=== PATIENT | male | born 1985 | race Caucasian/White ===

== ENCOUNTER 2024-07-23 18:56 | Emergency (ER) | payer OTHER, SELFPAY ==
[2024-07-23 19:04] VITALS: BP 130/92
[2024-07-23 19:35] LABS: % Basophils 0.4 % (0-2); % Eosinophils 0.5 % (0-6); % Immature Granulocytes 0.3 % (0-0.5); % Lymphocytes 19.9 % (20.5-51.1); % Neutrophils 68.9 % (42.2-75.2); Absolute Lymphocytes 1.5 10^3/uL (1.2-3.4); Absolute Monocytes 0.8 10^3/uL (0.1-0.6); Absolute Neutrophils 5.3 10^3/uL (1.4-6.5); Hematocrit 43.7 % (39.0-52.0); Hemoglobin 15.1 g/dL (13.0-18.0); Mean Corp Hgb Conc. 34.6 g/dL (33.0-37.0); Mean Corpuscular Hgb 29.4 pg (27.0-31.0); Mean Corpuscular Volume 85.2 fL (80.0-94.0); Mean Platelet Volume 9.4 fL (7.4-10.4); Nucleated Red Blood Cells % 0 % (-); Platelet Count 193 10^3/uL (130-400); Red Blood Cell Count 5.13 10^6/uL (4.70-6.10); White Blood Cell Count 7.7 10^3/uL (4.8-10.8)
[2024-07-23 19:49] LABS: ALT (SGPT) 29 U/L (0-50); AST (SGOT) 38 U/L (17-59); Albumin 4.4 g/dl (3.5-5.0); Alkaline Phosphatase 57 U/L (38-126); Blood Urea Nitrogen 10 mg/dl (9-20); Calcium 8.5 mg/dl (8.4-10.2); Carbon Dioxide 30 mmol/L (22-30); Chloride 96 mmol/L (98-107); Glucose 101 mg/dl (70-99); Lipase 112 U/L (23-300); Potassium 4.4 mmol/L (3.5-5.1); Sodium 135 mmol/L (135-145); Total Bilirubin 0.6 mg/dl (0.2-1.3); eGFR > 60.00
[2024-07-23 19:54] LABS: COVID-19 Antigen Negative (Negative)
--- NOTE | 2024-07-23 22:09 | ED.GENMED ---
History of Present Illness
<KRISTI Saez - Last Filed: 07/23/24 23:43>
General
Chief Complaint: Cold/Flu/URI Symptoms
Source: patient
Time Seen by Provider: 07/23/24 22:09
Nursing documentation reviewed up to this point in time: agreed with
History of Present Illness
History of Present Illness:
Patient is a 38-year-old male who presents to the ER with 1 week of fever chills cough nausea vomiting diarrhea. He went back to work yesterday because he started to feel better but then today continued with fever and also had left-sided abdominal
pain which was what brought him to the ER. Initially during the start of the illness he had diarrhea however he has not had diarrhea or constipation with this abdominal pain.
Review of Systems
<KRISTI Saez - Last Filed: 07/23/24 23:43>
Review of Systems
Allergies reviewed?: Yes
All Other Systems: ROS reviewed and negative except as documented in HPI and ROS
Constitutional: Reports fever, fatigue and chills
EENT: Reports no symptoms
Respiratory: Reports cough; Denies trouble breathing
Cardiac: Reports no symptoms
ABD/GI: Reports abdominal pain and other (pt had n/v/d which has since resolved); Denies nausea, vomiting or diarrhea
: Reports no symptoms
Musculoskeletal: Reports no symptoms
Skin: Reports no symptoms
Psychiatric: Reports no symptoms
Phy Exam
<KRISTI Saez - Last Filed: 07/23/24 23:43>
General Physical Exam
General Presentation: no apparent distress
General age: appears stated age
General Skin: warm and dry
General Habitus: normal
General Mental: alert
General Hydration: appears well hydrated
Cardiovascular Exam
Cardiovascular Exam: regular rate/rhythm, no murmur and normal peripheral pulses
Pulmonary Exam
Pulmonary Exam: lungs clear and no respiratory distress
Gastrointestinal Exam
Gastrointestinal Exam: soft and other (tender left lower and left mid abdomen)
Neurological Exam
Neurological Exam: alert and oriented x3
Musculoskeletal Exam
Musculoskeletal Exam: full ROM
Skin Exam
Skin Exam: normal color and warm/dry
Psychiatric Exam
Psychiatric Exam: normal mood/affect
Course
<KRISTI Saez - Last Filed: 07/23/24 23:43>
Orders/Labs/Results
Orders:
Orders
07/23/24 19:08
Electrocardiogram (*1) Urgent
Reason for Study: Abdominal Pain
EKG- Treatment ONCE
CR Chest - 2 Views Urgent
Comment:
Reason For Exam: cough
07/23/24 19:23
COVID-19 Antigen Urgent
Source: Nasal Swab
Complete Blood Count/With Diff Urgent
Comprehensive Metabolic Panel Urgent
Lipase Urgent
Influenza A+B Rapid Molecular Urgent
JUANA Source: Nasal Swab
Specimen Description:
07/23/24 22:25
CT Abd/Pel (IV only)-DH only Urgent
Comment:
Reason For Exam: left sided abd pain
IV Insert/Care/Rem.- Treatment PRN
0.9% Sodium Chloride 1000 ml [Nss] 1,000 ml IV BOLUS
07/23/24 22:26
Ketorolac [Toradol] 15 mg IV NOW STA
Abnormal Lab Results
07/23/24
19:23
Absolute Monos (auto) 0.8 H 10^3/uL
(0.1-0.6)
Lymphocytes % 19.9 L %
(20.5-51.1)
Monocytes % 10.0 H %
(1.7-9.3)
Chloride 96 L mmol/L
(98-107)
Glucose 101 H mg/dl
(70-99)
07/23/24 19:23
07/23/24 19:23
Vital Signs
Initial and Last Documented VS:
Initial Vital Signs
Temp Pulse Resp BP Pulse Ox
100.7 F H 91 16 130/92 98
07/23/24 19:04 07/23/24 19:04 07/23/24 19:04 07/23/24 19:04 07/23/24 19:04
Last Documented Vital Signs
Temp Pulse Resp BP Pulse Ox
100.7 F H 91 16 140/70 93
07/23/24 19:04 07/23/24 19:04 07/23/24 19:04 07/23/24 23:00 07/23/24 23:00
Glue Bone Crusher consulted with Physician
Glue Bone Crusher consulted with physician?: Yes
Name of Physician Consulted: Dontae
<Louis Dueñas, - Last Filed: 07/23/24 23:30>
Orders/Labs/Results
Orders:
Orders
07/23/24 19:08
Electrocardiogram (*1) Urgent
Reason for Study: Abdominal Pain
EKG- Treatment ONCE
CR Chest - 2 Views Urgent
Comment:
Reason For Exam: cough
07/23/24 19:23
COVID-19 Antigen Urgent
Source: Nasal Swab
Complete Blood Count/With Diff Urgent
Comprehensive Metabolic Panel Urgent
Lipase Urgent
Influenza A+B Rapid Molecular Urgent
JUANA Source: Nasal Swab
Specimen Description:
07/23/24 22:25
CT Abd/Pel (IV only)-DH only Urgent
Comment:
Reason For Exam: left sided abd pain
IV Insert/Care/Rem.- Treatment PRN
0.9% Sodium Chloride 1000 ml [Nss] 1,000 ml IV BOLUS
07/23/24 22:26
Ketorolac [Toradol] 15 mg IV NOW STA
Abnormal Lab Results
07/23/24
19:23
Absolute Monos (auto) 0.8 H 10^3/uL
(0.1-0.6)
Lymphocytes % 19.9 L %
(20.5-51.1)
Monocytes % 10.0 H %
(1.7-9.3)
Chloride 96 L mmol/L
(98-107)
Glucose 101 H mg/dl
(70-99)
07/23/24 19:23
07/23/24 19:23
Vital Signs
Initial and Last Documented VS:
Initial Vital Signs
Temp Pulse Resp BP Pulse Ox
100.7 F H 91 16 130/92 98
07/23/24 19:04 07/23/24 19:04 07/23/24 19:04 07/23/24 19:04 07/23/24 19:04
Last Documented Vital Signs
Temp Pulse Resp BP Pulse Ox
100.7 F H 91 16 140/70 93
07/23/24 19:04 07/23/24 19:04 07/23/24 19:04 07/23/24 23:00 07/23/24 23:00
<KRISTI Saez - Last Filed: 07/23/24 23:43>
MDM/Problems Addressed
MDM/Problems Addressed:
As documented patient is a 38-year-old male who has had flulike symptoms and is positive for flu better yesterday went to work but then today had abdominal pain continued fevers which is a prompted him to come to the ER. He has tenderness at the
left side of his abdomen. He presents with a low-grade fever, normal white count stable hemoglobin normal electrolytes. CAT scan was done and does show mild mesenteric panniculitis and left side of the mid abdomen consistent with patient's
abdominal pain. There is also constipation. Patient has additional findings including minimal bilateral pleural effusions and minimal pericardial effusion. He has no chest pain or shortness of breath. Case reviewed ED physician will have patient
follow-up with his family doctor for additional findings however stable for discharge home. Patient was medicated with Toradol fluids feeling better. Discussed MiraLAX for constipation along w/ supportive care nsaids/tylenol.
<KRISTI Saez - Last Filed: 07/23/24 23:43>
*Radiology
Radiology exam reviewed: radiology read reviewed
*Pulse Oximetry
Patient hypoxic: no
*Critical Care Note
Total Time (30-74mins, 75-104mins- exclusive of procedures): Not Applicable
ED Attending Note
<KRISTI Saez - Last Filed: 07/23/24 23:43>
-
Portions of this chart may have been created with voice recognition software.� Occasional wrong word or��sound alike� substitutions may have occurred due to the inherent limitations of voice recognition software.
<Louis Dueñas DO - Last Filed: 07/23/24 23:30>
ED Attending Note
I performed the substantive portion of visit, reviewed & personally made and approve the management plan that is documented in note by myself or DARIELA.: Yes
Discharge Plan
Departure
Patient Disposition: Home (Routine Discharge)
Date of Disposition: 07/23/24
Time of Disposition: 23:40
Patient with high blood pressure during this ER visit?: Yes
Condition: Fair
Covid-19: Not Applicable
Discharge Problem:
Influenza A, Mesenteric panniculitis
Instructions: Flu in adults - Discharge instructions
Referrals:
NONE,* [Family Provider] -
Activity Restrictions/Additional Instructions:
As discussed you are positive for influenza. In addition you have mild mesenteric panniculitis in the left side of the mid abdomen likely causing her pain. You may go home get plenty of rest and alternate between Tylenol and ibuprofen for
symptoms. In addition please see family doctor for further findings on CAT scan including minimal bilateral pleural effusions and pericardial effusion.
Also as discussed your CAT scan showed constipation please take MiraLAX daily. Return if any worsening of symptoms.
Interventions
Interventions:
*Risk Screen - Suicide Last Done: 07/23/24 19:04
*General Assessment Last Done: 07/23/24 21:45
*Neglect/Abuse Screening Last Done: 07/23/24 19:04
ED- Fall Risk Assessment Last Done: 07/23/24 23:23
*ED COVID-19 Vaccine History Last Done: 07/23/24 22:24
*Nursing Disposition Last Done: 07/23/24 23:31
ED- Pulmonary Assessment Last Done: 07/23/24 21:44
Discharge Date and Time
Print Language: IRISH
[2024-07-23 22:20] VITALS: BMI 28.5
[2024-07-23 22:22] VITALS: BP 146/76
[2024-07-23] MEDS: TORADOL 15 MG IV (22:29)
[2024-07-23] MEDS: NSS 1000 IV (22:30)
[2024-07-23 23:00] VITALS: BP 140/70
== END 2024-07-23 23:51 | disposition home or self-care (01) ==
LOC: EMR 18:56
PROVIDERS: Emergency Medicine; EMERGENCY PHYSICIAN Emergency Medicine
DX: J10.1 Influenza due to other identified influenza virus with other respiratory manifestations (principal); K65.4 Sclerosing mesenteritis
CPT/HCPCS: 99284; 96374; 96361; 71046; 74177; 80053; 83690; 85025; 87502; 87811; 93005; Q9967